=== PATIENT | male | born 1995 | race Caucasian/White ===

== ENCOUNTER → 2020-10-24 12:27 | Outpatient (BNVA) | payer OTHER, SELFPAY | PROVIDERS: PCP Family Medicine; Visit Provider Internal Medicine Gastroenterology ==

== ENCOUNTER → 2020-11-28 10:00 | Outpatient (BNVA) | payer OTHER, SELFPAY | PROVIDERS: Visit Provider Physician Assistant ==

== ENCOUNTER 2022-04-13 11:29 | Outpatient (REF) | payer OTHER, SELFPAY ==
[2022-04-13 13:24] LABS: COVID-19 Test Negative (Negative)
== END 2022-04-13 11:30 | disposition home or self-care (01) ==
LOC: HO.LAB 11:29
PROVIDERS: PCP Family Medicine; Visit Provider Internal Medicine
DX: Z20.822 Contact with and (suspected) exposure to COVID-19 (principal)
CPT/HCPCS: 87635

== ENCOUNTER 2022-07-18 18:13 | Outpatient (REF) | payer OTHER, SELFPAY ==
[2022-07-19 10:27] LABS: CT PCR NOT DETECTED (Not Detect.); NG PCR NOT DETECTED (Not Detect.)
== END 2022-07-18 18:14 | disposition home or self-care (01) ==
LOC: HO.LAB 18:13
PROVIDERS: Visit Provider Physician Assistant Medical
DX: Z11.3 Encounter for screening for infections with a predominantly sexual mode of transmission (principal)
CPT/HCPCS: 87491; 87591

== ENCOUNTER 2022-07-30 16:34 | Outpatient (REF) | payer OTHER, SELFPAY ==
[2022-07-30 17:25] LABS: COVID-19 Test Negative (Negative); IDNOW Serial# BCCEAD1C
== END 2022-07-30 16:35 | disposition home or self-care (01) ==
LOC: HO.LAB 16:34
PROVIDERS: PCP Family Medicine; Visit Provider Internal Medicine
DX: Z20.822 Contact with and (suspected) exposure to COVID-19 (principal)
CPT/HCPCS: 87635

== ENCOUNTER 2022-08-12 09:34 | Outpatient (REF) | payer OTHER, SELFPAY ==
[2022-08-12 10:26] LABS: Influenza A PCR NEGATIVE (Negative); Influenza B PCR NEGATIVE (Negative); Resp Syncy Virus RNA Qual PCR NEGATIVE (Negative); SARS COV2 PCR INHOUSE NEGATIVE (Negative)
== END 2022-08-12 09:35 | disposition home or self-care (01) ==
LOC: HO.LAB 09:34
PROVIDERS: Visit Provider Physician Assistant
DX: Z20.822 Contact with and (suspected) exposure to COVID-19 (principal); R53.83 Other fatigue; J02.9 Acute pharyngitis, unspecified
CPT/HCPCS: 0241U

== ENCOUNTER 2022-08-15 21:31 | Outpatient (REF) | payer OTHER, SELFPAY ==
[2022-08-15 22:09] LABS: IDNOW Serial# 08D9AD1C; Influenza A Negative (Negative); Influenza B2 Negative (Negative)
[2022-08-15 22:10] LABS: COVID-19 Test Negative (Negative); Strep A Nucleic Acid Negative (Negative)
== END 2022-08-15 21:32 | disposition home or self-care (01) ==
LOC: HO.LAB 21:31
PROVIDERS: Visit Provider Physician Assistant
DX: J02.9 Acute pharyngitis, unspecified (principal)
CPT/HCPCS: 87502; 87635; 87651

== ENCOUNTER 2022-08-17 16:33 | Outpatient (REF) | payer OTHER, SELFPAY ==
[2022-08-17 17:27] LABS: Influenza A PCR NEGATIVE (Negative); Influenza B PCR NEGATIVE (Negative); Resp Syncy Virus RNA Qual PCR NEGATIVE (Negative); SARS COV2 PCR INHOUSE NEGATIVE (Negative)
== END 2022-08-17 16:34 | disposition home or self-care (01) ==
LOC: HO.LAB 16:33
PROVIDERS: Visit Provider Physician Assistant Medical
DX: Z20.822 Contact with and (suspected) exposure to COVID-19 (principal); R68.89 Other general symptoms and signs
CPT/HCPCS: 0241U; C9803

== ENCOUNTER 2022-09-17 15:57 | Outpatient (REF) | payer OTHER, SELFPAY | END 2022-09-17 15:58 | disposition home or self-care (01) | LOC: HO.ED 15:57 | PROVIDERS: PCP Family Medicine; Visit Provider Physician Assistant Medical | DX: Z13.89 Encounter for screening for other disorder (principal) ==

== ENCOUNTER 2023-05-09 17:30 | Emergency (ER) | payer OTHER, SELFPAY ==
[2023-05-09 17:40] VITALS: BP 161/92; PULSE 81; RESP 16; TEMP 36.6; O2SAT 100; BMI 23.6
--- NOTE | 2023-05-09 17:42 | ED.URI ---
HPI - URI/Sore Throat General Chief Complaint: Upper Respiratory Symptoms Stated Complaint: seeking flu,covid, rsv swab Time Seen by Provider: 05/09/23 17:40 Source: patient, RN notes reviewed and old records reviewed Mode of arrival: ambulatory History of Present Illness [facility] Narrative: 28-year-old male with past medical history of hypertension, asthma presenting to the ED complaining of dry cough, sore throat, rhinorrhea, fatigue, loss of taste x2 days. Denies ear pain, difficulty/inability to swallow, SOB/CP, recent travel. + sick contacts MD elicited complaint: cough, sore throat, rhinorrhea and nasal congestion Related Data Home Medications Medication Instructions Recorded Confirmed budesonide 32 mcg/actuation nasal 2 spray intranasal DAILY 06/20/20 11/28/20 spray lisinopril 5 mg tablet 5 mg PO DAILY 06/20/20 11/28/20 albuterol sulfate 90 mcg/actuation 2 inh inhalation Q6H PRN 11/28/20 11/28/20 breath activated powder inhaler Previous Rx's Medication Instructions Recorded omeprazole 20 mg capsule,delayed 20 mg PO BID #60 caps 02/05/21 release penicillin V potassium 500 mg 500 mg PO BID 10 days #20 tabs 05/09/23 tablet Allergies Allergy/AdvReac Type Severity Reaction Status Date / Time No Known Allergies Allergy Verified 11/28/20 10:00 [No Known Allergies*] Review of Systems Review of Systems: Constitutional: No Fever, No Chills, +fatigue ENT/Mouth: No Ear Pain, + Nasal Congestion, No Sinus Pain, No Hoarseness, + sore throat, + Rhinorrhea, No Swallowing Difficulty Cardiovascular: No Chest Pain, No SOB Respiratory: + Cough, No Sputum, No Wheezing Gastrointestinal: No Nausea, No Vomiting, No Abdominal pain Musculoskeletal: No joint pain, No Myalgias, No Joint Swelling Skin: No Skin Lesions, No rash Neuro: No Weakness Yes all other systems are reviewed and are negative Constitutional: Constitutional: Reports as per [facility] Past Medical History Attestation statement: The following information was validated with the patient. Source: old records reviewed Medical History HTN (hypertension) Asthma Surgical History Hx of wisdom tooth extraction (~05/2020) Family History Family History Father HTN (hypertension) Alcohol abuse Mother HTN (hypertension) Social History Social History Household Members: Family Alcohol intake: current Alcohol intake frequency: does not drink Advance Directives: No Advance Directives Information Provided: No Physical Exam Vital Signs: Vital Signs: Last Vital Signs Temp 97.8 F 05/09/23 17:40 Pulse 81 05/09/23 17:40 Resp 16 05/09/23 17:40 BP 161/92 H 05/09/23 17:40 Pulse Ox 100 05/09/23 17:40 O2 Del Method Room Air 05/09/23 17:40 BMI result Body Mass Index 23.6 Const: General: cooperative, healthy appearing and no acute distress Orientation/consciousness: patient oriented x3 Limitations: no limitations HEENT: Head: Yes normal to inspection and Yes atraumatic Ears: hearing grossly normal bilaterally, external ears normal, TM's normal bilaterally and mastoids normal General nose exam: Normal external nose present Face and sinus: Yes normal facial exam Throat: Yes uvula midline, Yes abnormal tonsil (+ bilateral tonsillar erythema/swelling with faint exudates), No peritonsillar mass, No uvula laterally displaced and No uvular edema Eyes: General: appearance normal, both eyes and all related structures EOM: EOMs intact bilaterally Neck: Neck: Yes normal visual inspection and Yes no meningeal signs Resp: Effort & Inspection: normal respiratory effort, no respiratory distress and no stridor Auscultation: clear to auscultation bilaterally Cardio: Rate: regular rate Heart sounds: S1 normal heart sound present and S2 normal heart sound present Skin: Rashes: no rashes Wounds: no wounds Neuro: General: patient oriented x3, tone normal and no meningeal signs Cranial nerves: Yes CN's II-XII intact bilaterally Gait exam (Neuro): Normal gait present Extrem: General: Yes normal to inspection Course Course Course Narrative: -patient requesting outpatient labs that were ordered by PCP for routine visit -1808--rapid strep negative > however will treat patient with antibiotics as clinically has strep pharyngitis Medical Decision Making Medical Decision Making [facility] Narrative: 28-year-old male with past medical history of hypertension, asthma presenting to the ED complaining of dry cough, sore throat, rhinorrhea, fatigue, loss of taste x2 days. On exam vital signs stable, NAD, nontoxic appearing, bilateral tonsillar swelling/erythema with exudate noted. Talking complete sentences. Concern for strep pharyngitis versus viral syndrome including COVID-19/influenza. Lower suspicion for ACS/PE. No evidence of RN SURGICAL PCU/retropharyngeal abscess Plan: COVID/flu/RSV testing, rapid strep Please refer to course for remaining clinical decision making, interpretation of labs/imaging results, and discussions with consultants and/or family members. Differential Diagnosis Differential Diagnoses: The differential diagnosis associated with the presentation includes As above Lab Data MDM Lab Attestation statement: I reviewed the patient's lab results. 05/09/23 18:15 05/09/23 18:15 Labs: Lab Results 05/09/23 05/09/23 Range/Units 17:47 18:15 WBC 7.6 (4.8-10.8) X10*3/uL RBC 4.94 (4.60-5.80) X10*6/uL Hgb 15.5 (14.0-18.0) g/dl Hct 45.7 (42.0-52.0) % MCV 92.5 (80.0-98.0) fL MCH 31.4 (27.0-33.0) pg MCHC 33.9 (31.0-36.0) g/dl RDW 11.5 (11.0-16.0) % Plt Count 186 (160-400) X10*3/uL MPV 10.4 (9.4-12.4) fL Immature Gran % (Auto) 0.7 H (0.0-0.4) % Neut % (Auto) 64.4 (45-73) % Lymph % (Auto) 19.6 L (20-40) % Christian % (Auto) 8.6 (2-11) % Eos % (Auto) 6.3 H (0-4) % Baso % (Auto) 0.4 (0-2) % Lymph # (Auto) 1.5 (1.2-4.9) X10*3/uL Christian # (Auto) 0.7 (0.1-1.2) X10*3/uL Eos # (Auto) 0.5 H (0.0-0.4) X10*3/uL Baso # (Auto) 0.0 (0.0-0.2) X10*3/uL Abs Immat Gran (auto) 0.05 H (0.00-0.03) X10*3/uL Absolute Neuts (auto) 4.9 (2.0-8.3) x10*3/uL Absolute Nucleated RBC 0.000 (0.0-0.012) X10*3/uL Nucleated RBC % (auto) 0.0 (0.0-0.2) /100WBC Sodium 141 (135-145) mmol/L Potassium 3.7 (3.3-5.1) mmol/L Chloride 104 (96-108) mmol/L Carbon Dioxide 24 (22-29) mmol/L Anion Gap 17 (12-20) BUN 12 (9-16) mg/dL Creatinine 0.80 (0.5-1.4) mg/dL Estim Creat Clear Calc 138.6 Estimated GFR > 60 Random Glucose 96 (60-115) mg/dL Calcium 9.6 (8.4-10.2) mg/dL S. pyogenes GrpA MACKENZIE Negative (Negative) External Record Review External record reviewed: Inpatient record, Office record, Outpatient record, Prior outpatient labs, Prior outpatient radiology, Primary care record and Outside ED record Tests considered The following testing was considered but not selected: As above Prescription Management I considered prescription management with: Pain Medication and Antibiotic Chronic Conditions Patient?s care impacted by: Hypertension Discharge Plan Discharge Clinical Impression: Viral infection, Pharyngitis Patient Disposition: Home, Self-Care Instructions: Pharyngitis (ED) Additional Instructions: You tested negative on the rapid strep however clinically looks like you have strep throat, penicillin V is an antibiotic please take as prescribed Take Tylenol /Motrin for body aches/fever Make sure staying hydrated Plenty of fluids Follow-up with your doctor Prescriptions: New penicillin V potassium 500 mg tablet 500 mg PO BID 10 Days Qty: 20 0RF No Action lisinopril 5 mg tablet 5 mg PO DAILY budesonide 32 mcg/actuation spray,non-aerosol 2 spray intranasal DAILY Rx Instructions: administer into each nostril albuterol sulfate 90 mcg/actuation aerosol powdr breath activated 2 inh inhalation Q6H PRN omeprazole 20 mg capsule,delayed release(DR/EC) 20 mg PO BID Qty: 60 3RF Referrals: Francisca Mckeon MD [Primary Care Provider] - 1 week
[2023-05-09 18:03] LABS: IDNOW Serial# 08D9AD1C; Strep A Nucleic Acid Negative (Negative)
[2023-05-09 18:20] LABS: MANUAL DIFF FLAG NO
[2023-05-09 18:28] LABS: Basophils Percent Auto 0.4 % (0-2); Eosinophils Absolute Auto 0.5 X10*3/uL (0.0-0.4); Eosinophils Percent Auto 6.3 % (0-4); Hematocrit 45.7 % (42.0-52.0); Hemoglobin 15.5 g/dl (14.0-18.0); Imm Gran Abs Auto 0.05 X10*3/uL (0.00-0.03); Imm Gran Pct Auto 0.7 % (0.0-0.4); Lymphocytes Absolute Auto 1.5 X10*3/uL (1.2-4.9); Lymphocytes Percent Auto 19.6 % (20-40); Mean Corpuscular HGB Conc 33.9 g/dl (31.0-36.0); Mean Corpuscular Hemoglobin 31.4 pg (27.0-33.0); Mean Corpuscular Volume 92.5 fL (80.0-98.0); Mean Platelet Volume 10.4 fL (9.4-12.4); Monocytes Absolute Auto 0.7 X10*3/uL (0.1-1.2); Monocytes Percent Auto 8.6 % (2-11); Neutrophils Absolute Auto 4.9 x10*3/uL (2.0-8.3); Neutrophils Percent Auto 64.4 % (45-73); Platelet Count 186 X10*3/uL (160-400); Red Blood Count 4.94 X10*6/uL (4.60-5.80); Red Cell Distribution Width 11.5 % (11.0-16.0); White Blood Count 7.6 X10*3/uL (4.8-10.8)
[2023-05-09 18:49] LABS: Anion Gap 17 (12-20); Blood Urea Nitrogen 12 mg/dL (9-16); Calcium 9.6 mg/dL (8.4-10.2); Carbon Dioxide 24 mmol/L (22-29); Chloride 104 mmol/L (96-108); Creatinine Clr Calc Pharmacy 138.6; Estimated Glomerular Filt Rate > 60; Glucose Random 96 mg/dL (60-115); Potassium 3.7 mmol/L (3.3-5.1); Sodium 141 mmol/L (135-145)
[2023-05-09 19:05] LABS: TSH reflex Free T4 0.85 uIU/mL (0.32-4.0)
[2023-05-09 19:06] LABS: Influenza A PCR NEGATIVE (Negative); Influenza B PCR NEGATIVE (Negative); Resp Syncy Virus RNA Qual PCR NEGATIVE (Negative); SARS COV2 PCR INHOUSE NEGATIVE (Negative)
== END 2023-05-09 19:18 | disposition home or self-care (01) ==
PROVIDERS: Physician Assistant; Emergency Provider Emergency Medicine; PCP Family Medicine
DX: B34.9 Viral infection, unspecified (principal); J02.9 Acute pharyngitis, unspecified; Z20.822 Contact with and (suspected) exposure to COVID-19; Z20.828 Contact with and (suspected) exposure to other viral communicable diseases; I10 Essential (primary) hypertension; J45.909 Unspecified asthma, uncomplicated; R13.10 Dysphagia, unspecified; Z79.899 Other long term (current) drug therapy
CPT/HCPCS: 0241U; 36415; 80048; 84443; 85025; 87651; 99282; 99283

== ENCOUNTER 2025-04-18 15:46 | Outpatient (AMB) | payer OTHER, SELFPAY ==
--- NOTE | 2025-04-18 15:49 | MHC.PC.OV ---
Vital Signs 04/18/25 15:57 Height 5 ft 9 in Weight 80.739 kg BMI 26.3 BP 120/74 Blood Pressure Location Rt brachial Position Sitting Respiration 16 Pulse 78 Pulse Source Pulse Oximeter Temp 97.6 F Temp Source Temporal Artery Scan Pulse Oximetry (%) 98 Oxygen Delivery Method Room Air Intake Visit Reasons: New patient Film Touch Up Inspector Required: No Accompanied by: Self / Same As Patient Allergies No Known Allergies (No Known Allergies*) Allergy (Verified 04/18/25 15:49) Medication List - Last Reconciled 04/18/25 by WILL Rodriguez albuterol sulfate 90 mcg/actuation (Ventolin HFA) 2 puffs inhalation Q4-6H PRN beclomethasone dipropionate 40 mcg/actuation (Qvar RediHaler) 2 inhalations inhalation BID clotrimazole 1% 1 appl topical BID lisinopril 5 mg PO DAILY Tobacco use date assessed: 04/18/25 HPI HPI Comments History of Present Illness Details 30-year-old male with history of hypertension, asthma, dysphagia presents to the office today for management of chronic conditions and to establish care. Previously with [facility]. HTN- bp 120/74. On lisinopril 5mg. Has had f fatigue, no lightheadedness Asthma- mild persistent. no recent exacerbation. On qvar, rare albuterol use Dyphagia- normal barium swallow several years ago. No ongoing dysphagia. No longer following with Gastroenterology. Has discontinued omeprazole Sti concerns- remote history of unprotected sex. Reports he recently had STI testing at prior PCP but did not include HIV. He is requesting HIV testing. ROS: See HPI EXAM: Constitutional - Awake and Alert, No apparent distress Eyes - PERRL Cardiovascular - S1S2, RRR, No edema Respiratory - Normal lung expansion, Normal respiratory effort, No respiratory distress, CTA bilaterally Extremities - no calf tenderness bilaterally, no swelling Skin - Warm/Dry Neurological - Alert & oriented x3 Psychological - Appropriate affect PFSH Medical History HTN (hypertension) Asthma Surgical History Hx of wisdom tooth extraction (~05/2020) Family History Father HTN (hypertension) Alcohol abuse Mother HTN (hypertension) Social History Household Members: Family Both parents involved: Yes Housing: House Alcohol intake: current Alcohol intake frequency: does not drink Patient Tobacco Use Status: Never used Tobacco e-Cigarette/Vaping Use: Never Used service: No Current occupational status: employed Questionnaire PHQ-9 Over the last 2 weeks, how often have you been bothered by any of the following problems? 1. Little interest or pleasure in doing things: not at all 2. Feeling down, depressed, or hopeless: not at all 3. Trouble falling or staying asleep, or sleeping too much: several days 4. Feeling tired or having little energy: several days 5. Poor appetite or overeating: not at all 6. Feeling bad about yourself - or that you are a failure or have let yourself or your family down: not at all 7. Trouble concentrating on things, such as reading the newspaper or watching television: not at all 8. Moving or speaking so slowly that other people could have noticed. Or the opposite - being so fidgety or restless that you have been moving around a lot more than usual: not at all 9. Thoughts that you would be better off or of hurting yourself in some way: not at all Total score: 2 Source: Developed by Drs. Janak Pompa, Sloane Joseph, Ethan Carr and colleagues, with an educational jaison from [employer]. Thrive Questionnaire Date Thrive assessed: 04/18/25 I am a: Patient What is your living situation today?: I have a steady place to live Within the past 12 months, did the food you bought not last and you didn't have the money to get more?: Never true Within the past 12 months, did you worry whether your food would run out before you got money to buy more?: Never true Do you have trouble paying for medicines?: No Do you have trouble getting transportation to medical appointments?: No Do you have trouble paying your heating and electricity bill?: No Do you have trouble taking care of your child, family member or friend?: No Do you have trouble with day-to-day activities such as bathing, preparing meals, shopping, managing finances, etc.?: No Are you currently unemployed and looking for a job?: No Are you interested in more education?: No Please select the resources that you would like help with: None THRIVE Score: 0 AUDIT C Alcohol Use Questionnaire (AUDIT-C) 1. How often do you have a drink containing alcohol?: Monthly or less 2. How many drinks containing alcohol do you have on a typical day when you are drinking?: 1 or 2 Total Score: 1 JESSICA-7 AMB Questionnaire JESSICA-7 Date JESSICA - 7 assessed: 04/18/25 Feeling nervous, anxious, or on edge: 1 = Several days Not being able to stop or control worryin = Several days Worrying too much about different things: 0 = Not at all Trouble relaxin = Several days Being so restless that it is hard to sit still: 0 = Not at all Becoming easily annoyed or irritable: 0 = Not at all Feeling afraid as if something awful might happen: 1 = Several days Total JESSICA-7 score (0-4 normal; 5-9 mild; 10-14 moderate; 15-21 severe): 4 Source: Developed by Drs. Janak Pompa, Sloane Joseph, Ethan Carr and colleagues, with an educational jaison from [employer]. Physical exam (Primary Care) Vital Signs: Last Vital Signs Temp 97.6 F 04/18/25 15:57 Pulse 78 04/18/25 15:57 Resp 16 04/18/25 15:57 BP 120/74 04/18/25 15:57 Pulse Ox 98 04/18/25 15:57 Oxygen Delivery Method Room Air 04/18/25 15:57 BMI result Body Mass Index 26.3 Tobacco/Smoking Status: Tobacco use Status Tobacco use date assessed 04/18/25 04/18/25 15:52 Patient Tobacco Use Status Never used Tobacco 04/18/25 15:59 e-Cigarette/Vaping Use Never Used 04/18/25 15:59 PHQ-9: PHQ-9 Score PHQ-9: Total score 2 04/18/25 16:51 Thrive Assessment: Date of Thrive Assessment Date Thrive assessed 04/18/25 04/18/25 16:51 Coding Level of Care Code New Pt Level 4 (63277) Complex EM visit Add On G2211 Diagnoses HTN (hypertension) I10 Dysphagia R13.10 Asthma J45.909 Unprotected sex Z72.51 Assessment & Plan Assessment & Plan (1) HTN (hypertension): Code(s): I10 - Essential (primary) hypertension Category: Medical Plan: Controlled. Would recommend continuing lisinopril 5 mg daily at this (2) Dysphagia: Comment: a very pleasant 25-year-old male referred with dysphagia to solids-however inconsistent. He does not want to pursue any further workup. He will continue following medications for asthma-as well as good oral hygiene, ? esophagitis- He will call us with questions or concerns-as well will call with progress Eat slowly -chew well Encouraged to monitor symptoms- omeprazole 20 mg now is helpful. reportedly , reportedly normal barium swallow at [facility]- will attempt, again to get that record. may be functional Code(s): R13.10 - Dysphagia, unspecified Category: Medical Plan: Resolved. Reviewed last barium swallow. He may remain off of omeprazole. Should symptoms recur, advised to contact the office and resume omeprazole (3) Asthma: Code(s): J45.909 - Unspecified asthma, uncomplicated Category: Medical Plan: Stable. Continue QVAR and use albuterol only as needed for shortness of breath and wheezing (4) Unprotected sex: Code(s): Z72.51 - High risk heterosexual behavior Category: Medical Plan: HIV testing ordered. He declines prep at this time, but may consider in the future. At which time, referral can be placed to Infectious Disease for recommendations Plan Follow-up in the office in 6 months for annual physical exam. Orders: Orders HIV Ab/Ag Today Z72.51 - High risk heterosexual behavior Medications: New albuterol sulfate 90 mcg/actuation (Ventolin HFA) 2 puffs inhalation Q4-6H PRN 8.5 grams 1RF shortness of breath or wheezing
[2025-04-18 15:57] VITALS: BP 120/74; PULSE 78; RESP 16; TEMP 36.4; O2SAT 98; BMI 26.3
--- OUTSIDE RECORDS SUMMARY | 2025-04-18 16:39 | XMS_ITS | Encounter Summary ---
Author Organization [facility] Address [address] [place] [address] Phone Care Team Providers Care Gore Maker Name Role Phone Francisca Mckeon MD, MPH Primary Care Provid er Francisca Mckeon MD, MPH Unavailable [phone] Encounter Details Date Type Department Care Team (Late st Contact Info) Description 07/29/2022 Transcribe Orders [facility] Specimen Processing [address] [place] [address] Francisca Mckeon MD, MPH [address] [facility] [address] [place] [address] [email or web address] Social History Tobacco Use Types Packs/Day Years Used Date Smoking Tobacco: Never Smokeless Tobacco: Never Alcohol Use Standard Drinks/Week Comments Not Currently 0 (1 standard drink = 0.6 oz pur e alcohol) Child or Family Care Answer Date Record ed Do you have problems with on e of the following making it difficult for you to work, study, or receive health care? No 07/24/2021 Education Answer Date Recorded Are you interested in help w ith more adult education (for example, completing high school, GED, job training, learning the [place] language, technical skills, or developing parenting skills)? No 07/24/2021 Are you concerned about learning? Not on file 07/24/2021 Not on file 07/24/2021 Not on file 07/24/2021 Food Answer Date Recorded Within the past 6 months we worried whether our food would run out before we got money to buy more. Never True 07/24/2021 Within the past 6 months the food we bought just didn't last and we didn't have enough money to get more. Never True Paying for Meds Answer Date Recorded Do you have trouble paying for medicines? No 07/24/2021 Paying Utility Bills Answer Date Record ed Do you have trouble paying your heating or elect ricity bill? No 07/24/2021 Transportation Answer Date Recorded Has the lack of transportati on kept you from medical appointments or from getting medications? No 07/24/2021 Sex and Gender Information Value Date Recorded Sex Assigned at Male 07/22/2019 2:14 PM EST Legal Sex Male 3:36 PM EDT Gender Identity Male 07/22/2019 2:14 PM EST Sexual Orientation Lesbian or Graves 07/22/2019 2: 14 PM EST documented as of this encounter Plan of Treatment Not on file documented as of this encounter Visit Diagnoses Not on filedocumented in this encounter Additional Health Concerns Assessment Noted Time PHQ-2 Depression Total Score: 0 07/24/20 21 12:16 PM EST documented as of this encounter Care Teams Gore Maker Relationship Specialty Start Date End Date Francisca Mckeon MD, MPH [address] [place] [id number] [email or web address] PCP - General Family Medicine 06/09/19 Francisca Mckeon MD, MPH [address] [address] Insurance Assigned Provider 10/22/24 documented as of this encounter Additional Source Comments The information contained in this document represents components of the legal health record. It is not the complete legal health record.[facility]
--- OUTSIDE RECORDS SUMMARY | 2025-04-18 16:39 | XMS_ITS | Encounter Summary ---
Author Organization [facility] Address [address] [place] [phone] Phone Care Team Providers Care Automotive Product Specialist Name Role Phone Francisca Mckeon MD, MPH Primary Care Provid er Francisca Mckeon MD, MPH Unavailable [phone]- [phone] Encounter Details Date Type Department Care Team (Late st Contact Info) Description 05/02/2021 Procedure Pass [facility] Endoscopy Admitting Dept Virtual Department [address] [place] [address] Social History Tobacco Use Types Packs/Day Years Used Date Smoking Tobacco: Never Smokeless Tobacco: Never Alcohol Use Standard Drinks/Week Comments Yes 0 (1 standard drink = 0.6 oz pur e alcohol) Sex and Gender Information Value Date Recorded [...] Noted Time PHQ-2 Depression Total Score: 0 07/22/20 20 6:15 PM EST documented as of this encounter Care Teams Automotive Product Specialist Relationship Specialty Start Date End Date Francisca Mckeon MD, MPH [address] [facility] [address] [place] [address] [email or web address] PCP - General Family Medicine 06/09/19 Francisca Mckeon MD, MPH [address] [place] [address] [email or web address] Insurance Assigned Provider 10/22/24 documented as of this encounter Additional Source Comments The information contained in this document represents components of the legal health record. It is not the complete legal health record.[facility]
--- OUTSIDE RECORDS SUMMARY | 2025-04-18 16:39 | XMS_ITS | Encounter Summary ---
Author Organization [facility] Address [address] [place] [address] Phone Care Team Providers Care Tankage Supervisor Name Role Phone Francisca Mckeon MD, MPH Primary Care Provid er Francisca Mckeon MD, MPH Unavailable [phone] Reason for Visit * Reason Onset Date Comments Constipation 10/30/2022 Encounter Details Date Type Department Care Team (Late st Contact Info) Description 10/30/2022 Nurse Triage [facility] [address] [facility] [address] [facility] [address] [place] [address] Francisca Mckeon MD, MPH [address] [facility] [address] [place] [address] [email or web address] Constipation Social History Tobacco Use Types Packs/Day Years [...] high school, GED, job training, learning the Tanzanian language, technical skills, or developing parenting skills)? [...] PM EST documented as of this encounter Progress Notes * Vickie Kingston RN - 10/30/2022 11:41 AM EDT Spoke to pt regarding recent constipation following eating mozzarella sticks. Pt reports they started laxative which produced BM yesterday and today. Stool is now watery. Pt reports intermittent moderate abdominal pain. Offered to schedule appt for pt. Pt would like to monitor symptoms at home. Discussed increasing fluid intake, fiber and holding off on laxative. Advised pt to go to ED if abdominal becomes constant, severe pain. Advised to call back if intermittent pain worsens or does not go away. Pt verbalized understanding. Reason for Disposition ??? Mild constipation Answer Assessment - Initial Assessment Questions 1. STOOL PATTERN OR FREQUENCY: How often do you have a bowel movement (BM)? (Normal range: 3 times a day to every 3 days) When was your last BM? Usually once a day, and last BM was today, reports taking a laxative at 2am yesterday. 2. STRAINING: Do you have to strain to have a BM? A little straining 3. RECTAL PAIN: Does your rectum hurt when the stool comes out? If Yes, ask: Do you have hemorrhoids? How bad is the pain? (Scale 1-10; or mild, moderate, severe) No, but reports abdominal pain intermittently unrelated to when BM's happen, 5-01/24 4. STOOL COMPOSITION: Are the stools hard? The last 2 days were solid, but now they are watery. 5. BLOOD ON STOOLS: Has there been any blood on the toilet tissue or on the surface of the BM? IfYes, ask: When was the last time? no 6. CHRONIC CONSTIPATION: Is this a new problem for you? If no, ask: How long have you had this problem? (days, weeks, months) Every once in a while 7. CHANGES IN DIET OR HYDRATION: Have there been any recent changes in your diet? How much fluids are you drinking on a daily basis? How much have you had to drink today? Ate a lot of mozzarella sticks prior to this starting 8. MEDICATIONS: Have you been taking any new medications? Are you taking any narcotic pain medications? (e.g., Vicodin, Percocet, morphine, Dilaudid) no 9. LAXATIVES: Have you been using any stool softeners, laxatives, or enemas? If yes, ask What, how often, and when was the last time? Docusate sodium 100mg 10. ACTIVITY: How much walking do you do every day? Has your activity level decreased in the past week? Does not walk often, 11. CAUSE: What do you think is causing the constipation? cheese 12. OTHER SYMPTOMS: Do you have any other symptoms? (e.g., abdominal pain, bloating, fever, vomiting) Abdominal pain intermittent, fatigue 13. MEDICAL HISTORY: Do you have a history of hemorrhoids, rectal fissures, or rectal surgery or rectal abscess? no 14. : Is there any chance you are ? When was your last menstrual period? Na Protocols used: [id number] documented in this encounter Plan of Treatment Not on file documented as of this encounter Visit Diagnoses Not on filedocumented in this encounter Additional Health Concerns Assessment Noted Time PHQ-2 Depression Total Score: 0 07/24/20 21 12:16 PM EST documented as of this encounter Care Teams Tankage Supervisor Relationship Specialty Start Date End Date Francisca Mckeon MD, MPH [address] [address] [email or web address] PCP - General Family Medicine 06/09/19 Francisca Mckeon MD, MPH [address] [address] [email or web address] Insurance Assigned Provider 10/22/24 documented as of this encounter Additional Source Comments The information contained in this document represents components of the legal health record. It is not the complete legal health record.[facility]
--- OUTSIDE RECORDS SUMMARY | 2025-04-18 16:39 | XMS_ITS | Encounter Summary ---
Author Organization [facility] Address [address] [place] [address] Phone Care Team Providers Care Concrete Carpenter Name Role Phone Arminda Reilly MD Primary Care Provider [phone] Encounter Details Date Type Department Care Team (Late st Contact Info) Description 06/18/2017 Conversion Encounter [facility] [address] [place] [address] Social History Tobacco Use Types Packs/Day Years Used Date Smoking Tobacco: Never Comments:Never smoker Sex and Gender Information Value Date Recorded Sex Assigned at Not on file Legal Sex Male 4:57 PM EDT Gender Identity Not on file Sexual Orientation Not on file documented as of this encounter Plan of Treatment Not on file documented as of this encounter Visit Diagnoses Not on filedocumented in this encounter Care Teams Concrete Carpenter Relationship Specialty Start Date End Date Arminda Reilly MD [address] [place] [address] PCP - General 03/27/17 12/12/17 documented as of this encounter
--- OUTSIDE RECORDS SUMMARY | 2025-04-18 16:39 | XMS_ITS | Encounter Summary ---
Author Organization [facility] Address [address] [place] [address] [place] [address] Phone Care Team Providers Care Foreign Student Adviser Teacher Name Role Phone Francisca Mckeon MD, MPH Primary Care Provid er Francisca Mckeon MD, MPH Unavailable [phone] Encounter Details Date Type Department Care Team (Late st Contact Info) Description 09/19/2022 Procedure Pass Non-Invasive Cardiology [address] [place] [address] Social History Tobacco Use Types Packs/Day Years [...] high school, GED, job training, learning the Wallisian language, technical skills, or developing parenting skills)? [...] documented as of this encounter Care Teams Foreign Student Adviser Teacher Relationship Specialty Start Date End Date Francisca Mckeon MD, MPH [address] [address] [email or web address] PCP - General Family Medicine 06/09/19 Francisca Mckeon MD, MPH [address] [address] Insurance Assigned Provider 10/22/24 documented as of this encounter Additional Source Comments The information contained in this document represents components of the legal health record. It is not the complete legal health record.[facility]
--- OUTSIDE RECORDS SUMMARY | 2025-04-18 16:39 | XMS_ITS | Clinical Summary ---
Author Organization [facility] Address [address] [place] [address] Phone Care Team Providers Care Film Critic Name Role Phone Francisca Mckeon MD, MPH Primary Care Provid er Francisca Mckeon MD, MPH Unavailable [phone] Allergies No known active allergies Medications senna (SENOKOT) 8.6 mg tablet Take 1 tablet by mouth daily as needed for constipation. PRN Active cyclobenzaprine (FLEXERIL) 10 MG tablet Take 1 tablet (10 mg total) by mouth 3 (three) times a day as needed. 10 tablet 2 Active Additional Information Patient not taking.Reported on 01/18/2025 clotrimazole (LOTRIMIN) 1 % cream APPLY TOPICALLY TWICE DAILY 45 g 1 3 Active albuterol 90 mcg/actuation inhaler Inhale 2 puffs into the lungs every 6 (six) hours as needed for wheezing. 13.4 g 3 Active albendazole (ALBENZA) 200 mg tabletIndication s:Pinworm infection 2 tablets by mouth once and then repeat two weeks later. 4 tablet 4 Active Additional Information Patient not taking.Reported on 01/18/2025 beclomethasone (QVAR REDIHALER) 40 mcg/actuation inhaler Inhale 2 puffs into the lungs 2 (two) times a day. 10.6 g 5 4 Active lisinopril (PRINIVIL,ZESTRI L) 5 MG tabletIndication s:Essential hypertension TAKE 1 TABLET BY MOUTH EVERY DAY 90 tablet 3 5 Active ondansetron (ZOFRAN) 8 MG tablet Take 1 tablet (8 mg total) by mouth every 8 (eight) hours as needed for nausea. 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 -Continue Advil as needed with food -Add Flexeril 10 mg p.o. 3 times daily as needed dispense 10, [facility] verified. Patient advised not to drive or use heavy machinery while on this medication -Physical therapy referral -continue heat as needed Generalized anxiety disorder 09/21/2019 Assessment & Plan (12/18/2021 11:51 AM EDT): Reassurance provided. We discussed that physiology of anxiety and panic attacks. He and I reviewed a number of techniques to help with his anxiety and he is interested in applying those. We also discussed medications: Propranolol, buspirone, sertraline. At this point he is not interested in medicine but will revisit if necessary. Assessment & Plan (02/05/2021 9:34 PM EDT): Currently well controlled Assessment & Plan (10/24/2020 1:39 PM EST): Doing well managing his symptoms currently. Assessment & Plan (07/23/2020 3:09 PM EST): Currently doing well Assessment & Plan (05/18/2020 11:26 AM EDT): Consider re-evaluating therapy with a different therapist in the future. Assessment & Plan (01/02/2020 2:42 PM EDT): Encouraged to keep in touch with therapist for a while. Assessment & Plan (12/05/2019 2:40 PM EDT): Feels like this is improving, continue regular exercise. Will see counselor PRN. Assessment & Plan (10/17/2019 12:49 PM EST): Encouraged to establish with therapist. Continue regular exercise. Suspect anxiety is largely contributing to elevations in blood pressure although pt does have a strong family history as well. May want to consider SSRI treatment in the future. Assessment & Plan (09/21/2019 4:33 PM EST): Encouraged to find a therapist. He says he will wait til after wisdom teeth come out, likely end of this month. We also discussed medications as a possibility but would recommend starting with counseling first. Primary insomnia 08/19/2019 Assessment & Plan (09/21/2019 4:33 PM EST): Improving. Assessment & Plan (08/19/2019 1:44 PM EST): Sleep hygiene reviewed- encouraged bedtime routine, only being in bed for sleep, avoiding screens for an hour before bed, etc. Essential hypertension 07/22/2019 Assessment & Plan (11/16/2024 9:40 AM EDT): Borderline control, he will check some at home when not in a panic. Cont lisinopril Assessment & Plan (11/16/2023 12:38 PM EDT): Controlled, cont lisinopril. Had labs in April 2023, due in the fall Assessment & Plan (11/12/2022 12:54 PM EDT): Well controlled, cont current meds. Reminded to get blood work done Assessment & Plan (07/28/2022 1:38 PM EST): Well controled, cont lisinopril. Assessment & Plan (07/29/2021 12:13 PM EST): Well controlled, cont current meds Assessment & Plan (02/05/2021 9:34 PM EDT): Borderline control. Cont regular exercise and lisinopril 5mg Assessment & Plan (10/24/2020 1:36 PM EST): Cont lisinopril 5mg daily Assessment & Plan (07/23/2020 3:08 PM EST): Well controlled today. Assessment & Plan (05/18/2020 11:29 AM EDT): Well controlled today, cont lisinopril Assessment & Plan (01/02/2020 2:44 PM EDT): Has a strong family history of HTN. Bps on home machine improved with lisinopril 5mg. Would not check more often than 1-2x/week. Reviewed goal BP range (100-120s/60-80s). Ideally we can eventually get him off of medications, although with his family history he will likely end up back on medications again later in life. Assessment & Plan (12/05/2019 2:40 PM EDT): Well controlled now. Home BP cuff not accurate. Cont metoprolol. Assessment & Plan (10/17/2019 12:48 PM EST): Suspect anxiety is contributing but with documentation of a week's worth of home blood pressure readings above treatable range, will initiate treatment. Choosing beta-gely due to possible calming effects. Reviewed sodium restriction, exercise, reduced caffeine. Reviewed potential side effects including dizziness with standing. Check blood pressure about once a day and record for follow up in 2 weeks. Bring home BP cuff to next appt for accuracy check. Assessment & Plan (09/21/2019 4:34 PM EST): Continue regular exercise. Discussed cutting back on sodium- looking at labels, avoiding packaged foods. Still not in a treatment range. I suspect white coat syndrome may also be playing a role here but he has not been able to measure Bps outside of the office. Assessment & Plan (08/19/2019 1:39 PM EST): BP improved but still above goal for pt. Not in medication treatment range. Encouraged to increase exercise Assessment & Plan (07/22/2019 2:38 PM EST): Will reassess in 4 weeks. Patient will check blood pressure at home a couple times a week and write down. Seborrheic dermatitis of scalp 07/22/2019 Overview (07/22/2019): Uses ketoconazole shampoo as needed. Previously had tried Selsun Blue, head and shoulders Environmental allergies 07/22/2019 Mild persistent asthma without complication 01/2019 Assessment & Plan (11/16/2023 1:02 PM EDT): Controlled, PRN albuterol Assessment & Plan (10/24/2020 1:36 PM EST): Currently well controlled without controller inhaler. Assessment & Plan (07/23/2020 3:09 PM EST): Currently well controlled. Assessment & Plan (09/21/2019 4:33 PM EST): Improving with regular exercise. Assessment & Plan (08/19/2019 1:42 PM EST): Not taking control medication yet. Albuterol use still above goal despite being improved. Will try sending a diff rx, encouraged pt to call if rx is too expensive. Assessment & Plan (07/22/2019 2:39 PM EST): Currently has daily albuterol use, we reviewed goal of 1-2 times of albuterol use per week. Start controller inhaler at this time. No evidence of acute exacerbation on exam or history today. Consider Singulair as adjunctive in the future given considerable environmental allergies component. Resolved Problems Problem Noted Date Diagnosed Date Resolved Date Chronic pain of right knee 02/05/2021 1 08/17/2021 Assessment & Plan (02/05/2021 9:35 PM EDT): Benign exam. Will obtain XR. Given handout with strengthening and stretching exercises. Left varicocele 10/24/2020 06/17/2022 Overview (10/24/2020): Small on 09/2020 US Assessment & Plan (10/24/2020 1:40 PM EST): Reviewed this new diagnosis and it's implications today. Small in size, would recommend conservative mgmt at this time. Oropharyngeal dysphagia 09/21/201908/2021 Assessment & Plan (02/05/2021 9:35 PM EDT): Stop omeprazole for now and see how this impacts symptoms. Follow up w new GI as scheduled Assessment & Plan (07/23/2020 3:09 PM EST): Improving with omeprazole, following with GI currently. Assessment & Plan (05/18/2020 11:26 AM EDT): Unable to get to GI. Still having dysphagia and globus sensation. [facility] referral made. Assessment & Plan (01/02/2020 2:44 PM EDT): Has GI appt upcoming, encouraged to keep this. Assessment & Plan (12/05/2019 2:39 PM EDT): Has not responded to PPI. Referral placed to GI. Assessment & Plan (10/17/2019 12:48 PM EST): Improving some with PPI treatment, continue PPI for now and follow up at next visit. Assessment & Plan (09/21/2019 4:35 PM EST): Will start trial of PPI and get swallow study to start. Discussed possibility of esophagitis vs esophageal spasm or constriction (which would require endoscopy). Pt prefers to hold off on seeing GI just yet. History of constipation 07/22/201908/2021 Assessment & Plan (07/22/2019 2:37 PM EST): Continue PRN senna use. Agree with patient's insight to increase fiber and water intake Nasal polyp 07/22/2019 06/17/2022 Overview (07/22/2019): On right side, noted on prior exam at [facility] Encounters Date Type Department Care Team Description 01/18/2025 10:00 AM EDT [facility] [address] [place] [address] Cathryn Lyons MD Acute viral syndrome (Primary Dx) 01/16/2025 Nurse Triage [facility] [address] [place] [address] Ashley Julien RN from Last 3 Months Immunizations Immunization Administration Dates Next Due COVID-19 (Pre-06/08) Pfizer Vaccine, mRNA, PF 02/09/2021,01/19/2021,01/19/2021 DTP 10/24/1997, 7,1996,04/21 Dtap, 5 Pertussis Antigens 03/11/2001 HPV,quadrivalent 08/01/2013,03/18/2013, 3 Hepatitis A, Adult 02/14/2015 Hepatitis A, ped/adol, 2 dose 01/24/2014 Hepatitis B 1996,1996,1996 Hepatitis B Adult 11/01/2018, 9,05/03/2018,05/03,03/31/2018,03/31/2018,1996 Hib,PRP-T 05/21/1997, 7,1996,04/21 INFLUENZA, SPLIT VIRUS, TRIVALENT PF 06/02/2024 INFLUENZA, SPLIT VIRUS, TRIV ALENT W/ PRESERVATIVE IM 05/22/2009,10/17/2008,08/13/2006 IPV 03/11/2001 Influenza Quadrivalent MDCK Preservative Free IM 08/21/2023 Influenza Quadrivalent Prese rvative Free IM 07/28/2022,05/18/2020,05/03/2018,05/21,08/08/2013 Influenza Quadrivalent w/ Pr eservative IM 08/03/2014 Influenza Recombinant Rody valent Preservative Free IM 07/22/2019 Influenza Split (Incl. Purif ied Surface Antigen) 08/26/2012,05/06/2011 Influenza, Unspecified Formulation 07/28/2022 MMR 03/20/2000, 0,05/18/1997,05/18 Meningococcal MCV4P 03/05/2015,04/06/2008 PPD Test 04/12/2018,03/29/2018 Polio - OPV 1996,1996,1996 Tdap 03/29/2018,03/29/2018,04/06/2008 Varicella 04/06/2008, 8,1997,02/13 Family History Medical History Relation Comments No Known Problems Brother Alcohol use disorder Father Hypertension Father No Known Problems Mother Relation Status Comments Brother Alive Father Alive Maternal Grandfather Maternal Grandmother Mother Alive Paternal Grandfather Alive Paternal Grandmother Social History Tobacco Use Types Packs/Day Years Used Date Smoking Tobacco: Never Passive Smoke Exposure: Current Smokeless Tobacco: Never Tobacco Cessation:Counseling Given: Not Answered Alcohol Use Standard Drinks/Week Comments Not Currently 0 (1 standard drink = 0.6 oz pur e alcohol) Child or Family Care Answer Date Record ed Do you have problems with on e of the following making it difficult for you to work, study, or receive health care? No 11/15/2023 Education Answer Date Recorded Are you interested in help w ith more adult education (for example, completing high school, GED, job training, learning the Croatian language, technical skills, or developing parenting skills)? No 11/15/2023 Are you concerned about learning? Not on file 11/15/2023 No 11/15/2023 Yes 11/15/2023 Food Answer Date Recorded Within the past 6 months we worried whether our food would run out before we got money to buy more. Never True 11/15/2023 Within the past 6 months the food we bought just didn't last and we didn't have enough money to get more. Never True Residential Stability Answer Date Recor ded What is your housing situation today? I have christi sing 11/15/2023 How many times have you move d in the past 12 months? Zero (I did not move) 11/15/2023 Paying for Meds Answer Date Recorded Do you have trouble paying for medicines? No 11/15/2023 Paying Utility Bills Answer Date Record ed Do you have trouble paying your heating or elect ricity bill? No 11/15/2023 Transportation Answer Date Recorded Has the lack of transportati on kept you from medical appointments or from getting medications? No 11/15/2023 Unemployment Answer Date Recorded Are you currently unemployed or working on a part-time or temporary basis, and looking for work? No 11/15/2023 Digital Access Answer Date Recorded No 11/15/2023 Yes 11/15/2023 Do you have reliable internet access at home? Ye s 11/15/2023 Do you have a device (e.g., phone, tablet, computer) with a working camera? Yes 11/15/2023 Intimate Partner Violence Answer Date R ecorded Denied Basic Needs Not on file 11/12/2024 In the past 12 months have y ou been in a relationship with a person who hurts, threatens, or tries to control you? No 11/12/2024 Worried food would run out Not on file 11/12 In the past 12 months have y ou been in a relationship with a person who hurts, threatens, or tries to control you? No 11/12/2024 Sex and Gender Information Value Date Recorded Sex Assigned at Male 07/22/2019 2:14 PM EST Legal Sex Male 3:36 PM EDT Gender Identity Male 07/22/2019 2:14 PM EST Sexual Orientation Lesbian or Graves 07/22/2019 2: 14 PM EST Last Filed Vital Signs Vital Sign Reading Time Taken Comments Blood Pressure 124/70 01/18/2025 9:54 AM EDT Pulse 86 01/18/2025 9:54 AM EDT Temperature 36.7 C (98.1 F) 01/18/2025 9:54 AM EDT Respiratory Rate 20 01/15/2023 10:5 1 AM EDT Oxygen Saturation 99% 01/18/2025 9:54 AM EDT Inhaled Oxygen Concentration - - Weight 79.7 kg (175 lb 12.8 oz) 01/18/2025 9:54 AM EDT Height 177 cm (5' 9.69 ) 11/16/2024 8:43 AM EDT Body Mass Index 25.45 11/16/2024 8:43 AM EDT Plan of Treatment Health Maintenance Due Date Last Done Comments POTASSIUM LEVEL 1996 HIV ONE-TIME SCREENING (18-65 YEARS) 02/12/2014 PNEUMOCOCCAL VACCINES (0-49 years) (1 of 2 - PCV) 02/12/2015 INFLUENZA VACCINE (#1) 2025 , 08/21/2023, 07/28/2022, Additional history exists COVID-19 VACCINE (2024- season) 2025 02/09/2021, 01/19/2021, 01/19/2021 BLOOD PRESSURE 07/20/2025 01/18/2025 DEPRESSION SCREENING 11/12/2025 11/12/2024 CREATININE LEVEL 11/16/2025 11/16/2024, 10/22/2019 Adult Td,Tdap Booster 03/29/2028 03/29/2018 , 03/29/2018, 04/06/2008 HIB VACCINES Completed 05/21/1997, 10/1996, 1996, Additional history exists HEPATITIS A VACCINES Completed 02/14/2015, 01/25/20 14 MENINGOCOCCAL VACCINES (ACWY) Aged Out 03/05/2015, 04/06/2008 No longer eligibl e based on patient's age to complete this topic HEPATITIS C SCREENING Completed 11/16/2024 SMOKING STATUS SCREENING (Once After 26 Yrs) Completed 01/18/2025 MENINGOCOCCAL VACCINES (B) Aged Out N o longer eligible based on patient's age to complete this topic Medical Devices Not on file Procedures Procedure Name Priority Date/Time Associated Diagnosis Comments COMPREHENSIVE METABOLIC PANEL Routine 11/16/2024 4:35 PM EDT Essential hypertension HEPATITIS C ANTIBODY, QUALITATIVE Routine 11/16/2024 4:34 PM EDT Need for hepatitis C screening test from Last 3 Months or Most Recently Relevant to Health Maintenance Results * Comprehensive metabolic panel (11/16/2024 4:35 PM EDT) Blood us Francisca Mckeon MD, MPH LAB BLOOD ORDERABLES Final Result Performing Organization Address City/[facility]/ZIP Co de Phone Number [address] [address] * Hepatitis C antibody, qualitative (11/16/2024 4:34 PM EDT) Blood us Francisca Mckeon MD, MPH LAB BLOOD ORDERABLES Final Result Performing Organization Address City/[facility]/ZIP Co de Phone Number [address] [phone] from Last 3 Months or Most Recently Relevant to Health Maintenance [facility] Address: [address] [place] [address] [place] [facility] [place] [facility] [place] [facility] Care Teams Film Critic Relationship Specialty Start Date End Date Francisca Mckeon MD, MPH [address] [place] [phone] PCP - General Family Medicine 06/09/19 Francisca Mckeon MD, MPH [address] [place] [address] [email or web address] Insurance Assigned Provider 10/22/24 Additional Source Comments The information contained in this document represents components of the legal health record. It is not the complete legal health record.[facility]
--- OUTSIDE RECORDS SUMMARY | 2025-04-18 16:39 | XMS_ITS | Clinical Summary ---
Author Organization [facility] Address [address] [place] [address] Phone Care Team Providers Care Calender Wind Up Helper Name Role Phone Unavailable Primary Care Provider Unavailabl e Immunizations Immunization Administration Dates Next Due DTP 10/24/1997, 7,1996,04/21 DTaP 5 03/11/2001 HPV, Quadrivalent 08/01/2013,03/18/2013,12/17/19 13 Hep A, Adult 02/14/2015 Hep A, ped/adol 01/24/2014 Hep B, ped/adol 1996,1996,1996 Hib (PRP-T) 05/21/1997, 7,1996,04/21 IPV 03/11/2001 Influenza Split 08/26/2012,05/06/2011 Influenza, injectable, quadrivalent 08/03/2014 Influenza, injectable, quadr ivalent, preservative free 05/21/2015,08/08/2013 Influenza, injectable, trivalent 05/22/2009,0310/2008,08/13/2006 Influenza, injectable, triva lent, preservative free 06/02/2024 MMR 03/20/2000,05/18/1997 Meningococcal Conj (Menactra) MCV4P 03/05/2015,0 04/06/2008 OPV 1996,1996,1996 Tdap 04/06/2008 Varicella 04/06/2008,1997 Family History Relation Name Status Comments Father Alive Father: Alive a nd well Maternal Grandmother Materna l grandmother: Diabetes mellitus, Hypertension Mother Alive Mother: Alive a nd well Other Family history of Obesity, No family history of *Sudden /MD under 55, Family history of COPD, Family history of Hyperlipidemia, Family history of Hypertension, Family history of Diabetes mellitus, Family history of Asthma, Family history of *Dental caries, No family history of *Heart Disease, No family history of *CVA/Stroke, No family history of Stroke Paternal Grandmother Paterna l grandmother: Asthma Social History Tobacco Use Types Packs/Day Years Used Date Smoking Tobacco: Never Comments:Never smoker Sex and Gender Information Value Date Recorded Sex Assigned at Not on file Legal Sex Male 4:57 PM EDT Gender Identity Not on file Sexual Orientation Not on file Last Filed Vital Signs Vital Sign Reading Time Taken Comments Blood Pressure 144/83 01/28/2017 12:00 AM EDT Pulse 67 01/28/2017 12:00 AM EDT Temperature 37 C (98.6 F) 01/28/2017 12:00 AM EDT Respiratory Rate - - Oxygen Saturation 98% 01/28/2017 12:00 AM EDT Inhaled Oxygen Concentration - - Weight 71 kg (156 lb 9.6 oz) 01/28/2017 12:00 AM EDT Height 177.2 cm (5' 9.75 ) 01/28/2017 12:00 AM E DT Body Mass Index 22.63 01/28/2017 12:00 AM EDT Plan of Treatment Health Maintenance Due Date Last Done Comments COVID-19 Vaccine (3 season) 2024 02/09/2021, 01/19/2021 Influenza Vaccines (#1) 2025 06/02/20, 08/21/2023, 07/28/2022, Additional history exists DTaP,Tdap,and Td Vaccines (8 - Td or Tdap) 03/29/2028 03/29/2018, 04/06/2008, 03/11/2001, Additional history exists HIB Vaccines Completed 05/21/1997, 10/1996, 1996, Additional history exists MMR Vaccines Completed 03/20/2000, 05/18/1997 IPV Vaccines Completed 03/11/2001, 10/1996, 1996, Additional history exists Varicella Vaccines Completed 04/06/2008, 1997 HPV Vaccines Completed 08/01/2013, 09/2012, 12/16/2012 Hepatitis A Vaccines Completed 02/14/2015, 01/25/20 14 Meningococcal Vaccine Aged Out 03/05/2015, 008 No longer eligible based on patient's age to complete this topic Hepatitis B Vaccines Completed 11/01/2018, 05/03/2018, 03/31/2018, Additional history exists Men B Vaccine Aged Out No longer elig ible based on patient's age to complete this topic Pneumococcal Vaccine Aged Out No long er eligible based on patient's age to complete this topic Insurance [facility] NON PCC [facility] HMO
--- OUTSIDE RECORDS SUMMARY | 2025-04-18 16:39 | XMS_ITS | Encounter Summary ---
Author Organization [facility] Address [address] [place] [address] Phone Care Team Providers Care Phone Screener Name Role Phone Arminda Reilly MD Primary Care Provider [phone] Encounter Details Date Type Department Care Team (Late st Contact Info) Description 01/20/2017 Documentation [facility] [address] [place] [address] Family Medicine, Physician [address] [place], [place] [id number] Social History Tobacco Use Types Packs/Day Years [...] on filedocumented in this encounter Care Teams Phone Screener Relationship Specialty Start Date End Date Arminda Reilly MD [address] [place] [address] PCP - General 03/27/17 12/12/17 documented as of this encounter
== END 2025-04-18 16:28 | disposition home or self-care (01) ==
LOC: HO.HMCHD 15:46
PROVIDERS: PCP Physician Assistant; Visit Provider Physician Assistant
DX: I10 Essential (primary) hypertension (principal); R13.10 Dysphagia, unspecified; J45.909 Unspecified asthma, uncomplicated; Z72.51 High risk heterosexual behavior

== ENCOUNTER 2025-08-14 16:29 | Outpatient (AMB) | payer OTHER, SELFPAY ==
[2025-08-14 16:30] VITALS: BP 122/72; PULSE 50; TEMP 36.2; O2SAT 98; BMI 26.1
--- NOTE | 2025-08-14 16:30 | A.OFFPC_ITS ---
Vital Signs 08/14/25 16:30 Height 5 ft 9 in Weight 177 lb BMI 26.1 BP 122/72 Blood Pressure Location Lt brachial Position Sitting Pulse 50 Pulse Source Pulse Oximeter Temp 97.1 F Temp Source Temporal Artery Scan Pulse Oximetry (%) 98 Oxygen Delivery Method Room Air Intake Visit Reasons: Abd bloating Worm Raiser Required: No Accompanied by: Self / Same As Patient Allergies No Known Allergies (No Known Allergies*) Allergy (Verified 08/14/25 16:30) Medication List - Last Reconciled 08/14/25 by WILL Alcantar albuterol sulfate 90 mcg/actuation (Ventolin HFA) 2 puffs inhalation Q4-6H PRN beclomethasone dipropionate 40 mcg/actuation (Qvar RediHaler) 2 inhalations inhalation BID clotrimazole 1% 1 appl topical BID lisinopril 5 mg PO DAILY omeprazole 20 mg PO DAILY Tobacco use date assessed: 08/14/25 Dental Screening Dental Screen Date: 08/14/25 Did you have a dental visit in the last 12 months?: No Did you have a dental problem in the last 6 months where you did not have access to dental care?: No HPI HPI Comments History of Present Illness Details History of Present Illness The patient is a 30 year old male presenting with abdominal symptoms which he suspects may be Irritable Bowel Syndrome (IBS). His primary symptom is a feeling of incomplete evacuation after a bowel movement. He has noticed that his stools have become thinner and more yellow in color. He also experiences bloating for a good portion of the day, sometimes accompanied by cramping prior to a bowel movement. He occasionally sees mucus in his stool but denies any blood. The patient reports upper abdominal discomfort located superior to the umbilicus. His symptoms do not appear to be triggered by specific foods and can occur even after drinking water. He has a past medical history of acid reflux several years ago and is also dealing with a fungal skin issue. He recently started taking a probiotic supplement a few days prior to this visit. Medical History: - Acid reflux, history of - Fungal skin infection Patient was informed and verbally consented to the use of an ambient scribe for clinic note documentation during this visit. [facility] Medical History HTN (hypertension) Asthma Surgical History Hx of wisdom tooth extraction (~05/2020) Family History (Updated 08/14/25 @ 16:39 by Carol Woodard MA) Father HTN (hypertension) Alcohol abuse Mother HTN (hypertension) Other Substance abuse Social History Household Members: Family Both parents involved: Yes Housing: House Alcohol intake: current Alcohol intake frequency: does not drink Patient Tobacco Use Status: Never used Tobacco e-Cigarette/Vaping Use: Never Used service: No Current occupational status: employed Cognitive needs: No Hearing needs: No Vision needs: Yes (reading glasses) Questionnaire Thrive Questionnaire Date Thrive assessed: 04/18/25 JESSICA-7 AMB Questionnaire JESSICA-7 Date JESSICA - 7 assessed: 04/18/25 Source: Developed by Drs. Janak Pompa, Sloane Joseph, Ethan Carr and colleagues, with an educational jaison from [employer]. Review of Systems Narrative Review of Systems - Gastrointestinal: Reports a sensation of incomplete evacuation, thinner stools, yellow stools, abdominal bloating, and upper abdominal discomfort above the navel. Reports occasional abdominal cramping and mucus in stool. Denies hematochezia. - Dermatologic: Reports a fungal skin condition. Physical exam (Primary Care) Vital Signs: Last Vital Signs Temp 97.1 F 08/14/25 16:30 Pulse 50 08/14/25 16:30 BP 122/72 08/14/25 16:30 Pulse Ox 98 08/14/25 16:30 Oxygen Delivery Method Room Air 08/14/25 16:30 BMI result Body Mass Index 26.1 GENERAL Well developed, Well nourished, in no apparent distress HEENT Head-Normocephalic Neck- Supple, No lymphadenopathy, thyroid WNL RESPIRATORY Normal I:E, Clear to auscultation CARDIOVASCULAR Regular, rate and rhythm, No murmurs or rubs GASTROINTESTINAL Soft, nontender, normal bowel sounds, no masses NEUROLOGICAL Gait normal PSYCHIATRIC Oriented to person, place and time Mood and affect WNL Appearance WNL Speech WNL Thought processes WNL Tobacco/Smoking Status: Tobacco use Status Tobacco use date assessed 08/14/25 08/14/25 16:40 Patient Tobacco Use Status Never used Tobacco 08/14/25 16:40 e-Cigarette/Vaping Use Never Used 08/14/25 16:40 Thrive Assessment: Date of Thrive Assessment Date Thrive assessed 04/18/25 08/14/25 16:40 Narrative Physical Exam - Abdomen: Bowel sounds are gurgly in the upper quadrants. The abdomen is soft and non-tender to palpation throughout. No pain reported on deep inspiration. Coding Level of Care Code Established Pt Est Pt Level 4 (06431) Established Pt Add On Problem Visit Only Patient Type Established Diagnoses GERD without esophagitis K21.9 IBS (irritable bowel syndrome) K58.9 Time Spent (min) 30 Comment Time spent on Chart review, H&P, Patient education and orders. Assessment & Plan Assessment & Plan (1) GERD without esophagitis: Code(s): K21.9 - Gastro-esophageal reflux disease without esophagitis Plan: Will restart Omeprazole. Patient to follow up as needed if symptoms persist or worsen. (2) IBS (irritable bowel syndrome): Code(s): K58.9 - Irritable bowel syndrome, unspecified Plan: Discussed options with patient. Recommended Fiber powder. Increase water. Patient to follow up as needed if symptoms persist or worsen. Plan Plan Patient was informed and verbally consented to the use of an ambient scribe for clinic note documentation during this visit. 1. Irritable Bowel Syndrome The patient's symptoms of bloating, sensation of incomplete evacuation, and thinner stools are consistent with Irritable Bowel Syndrome (IBS), likely exacerbated by daily stress. The plan is to increase fiber intake to promote more consistent bowel movements and alleviate bloating. Recommended starting Benefiber powder at a dose of one teaspoon twice daily, with an emphasis on ensuring adequate water intake. The patient was advised that while his probiotic is not harmful, it may not significantly impact his IBS symptoms. The role of stress reduction was also discussed. 2. Gastroesophageal Reflux Given the patient's history of acid reflux, reports of upper abdominal discomfort, and gurgling sounds on exam, a recurrence of acid-related symptoms is suspected. A prescription for omeprazole to be taken once daily will be sent to the patient's preferred pharmacy. 3. Follow-Up Care The patient has a follow-up scheduled with [facility] in October but was advised to return sooner if his symptoms do not improve with the new regimen. Discussion Notes I discussed with the patient that his constellation of symptoms, including bloating, sensation of incomplete evacuation, and changes in stool form, are highly suggestive of Irritable Bowel Syndrome (IBS). I explained the pathophysiology of IBS as a dysregulation of the gut-brain axis, often exacerbated by stress, which leads to confusion in the digestive tract's motility. I also noted that his upper abdominal discomfort could be a recurrence of his past acid reflux issues. We discussed a plan to address these issues, starting with a prescription for omeprazole once daily for the suspected acid reflux. For the IBS symptoms, I recommended increasing fiber intake using a supplement like Benefiber, starting with one teaspoon twice a day, and stressed the importance of drinking adequate water to prevent constipation. We also discussed that while his current probiotic is not harmful, it may not provide significant relief for IBS. The importance of stress management was reinforced. The patient has a follow-up scheduled in October but was instructed to return sooner if his condition does not improve. Patient Instructions - Take omeprazole once a day for your stomach discomfort. I have sent a presc ription to the [facility] on . - I recommend you start taking a fiber powder to help with your bowel symptoms. A good option is Benefiber. - Start by mixing one teaspoon of fiber powder into a drink in the morning and one teaspoon at night. - It is very important to drink plenty of water throughout the day while using a fiber supplement. - You can finish the bottle of probiotics you bought, but you do not need to buy more if you don't notice a benefit. - Try to find ways to lower your stress, as it can make your stomach problems worse. - Please come back to the clinic sooner than your scheduled October appointment if your symptoms are not getting better. Medications: New omeprazole 20 mg PO DAILY 90 caps 0RF
--- OUTSIDE RECORDS SUMMARY | 2025-08-14 18:00 | XMS_ITS | Encounter Summary ---
Author Organization [facility] Address [address] [place] [address] Phone Care Team Providers Care Freight Forwarder Name Role Phone Francisca Mckeon MD, MPH Primary Care Provid er Francisca Mckeon MD, MPH Unavailable [phone] Reason for Visit * Reason Onset Date Comments Constipation 10/30/2022 Encounter Details Date Type Department Care Team (Late st Contact Info) Description 10/30/2022 Nurse Triage [facility] [address] [place] [address] Francisca Mckeon MD, MPH [address] [facility] [address] [place] [address] [email or web address] Constipation Social History Tobacco Use Types Packs/Day [...] high school, GED, job training, learning the Polish language, technical skills, or developing parenting skills)? [...] your last menstrual period? Na Protocols used: [id number] documented in this encounter Plan of Treatment Not on file documented as of this encounter Visit Diagnoses Not on filedocumented in this encounter Additional Health Concerns Assessment Noted Time PHQ-2 Depression Total Score: 0 07/24/20 21 12:16 PM EST documented as of this encounter Care Teams Freight Forwarder Relationship Specialty Start Date End Date Francisca Mckeon MD, MPH [address] [address] [email or web address] PCP - General Family Medicine 06/09/19 Francisca Mckeon MD, MPH [address] [address] [email or web address] Insurance Assigned Provider 10/22/24 05/27/25 documented as of this encounter Additional Source Comments The information contained in this document represents components of the legal health record. It is not the complete legal health record.[facility]
--- OUTSIDE RECORDS SUMMARY | 2025-08-14 18:00 | XMS_ITS | Encounter Summary ---
Author Organization [facility] Address [address] [place] [address] Phone Care Team Providers Care Vp Transportation Name Role Phone Arminda Reilly MD Primary Care Provider [phone] Encounter Details Date Type Department Care Team (Late st Contact Info) Description 06/18/2017 Conversion Encounter [facility] [place] [address] [place] [address] Social History Tobacco Use Types Packs/Day Years [...] on filedocumented in this encounter Care Teams Vp Transportation Relationship Specialty Start Date End Date Arminda Reilly MD [address] [place] [address] PCP - General 03/27/17 12/12/17 documented as of this encounter
--- OUTSIDE RECORDS SUMMARY | 2025-08-14 18:00 | XMS_ITS | Encounter Summary ---
Author Organization [facility] Address [address] [place] [address] Phone Care Team Providers Care Loan Reviewer Name Role Phone Francisca Mckeon MD, MPH Primary Care Provid er Francisca Mckeon MD, MPH Unavailable [phone] Encounter Details Date Type Department Care Team (Late st Contact Info) Description 05/02/2021 Procedure Pass [facility] Endoscopy Admitting Dept Virtual Department [address] [place] [address] Social History Tobacco Use Types Packs/Day Years [...] documented as of this encounter Care Teams Loan Reviewer Relationship Specialty Start Date End Date Francisca Mckeon MD, MPH [address] [facility] [address] [address] [email or web address] PCP - General Family Medicine 06/09/19 Francisca Mckeon MD, MPH [address] [place] [address] [email or web address] Insurance Assigned Provider 10/22/24 05/27/25 documented as of this encounter Additional Source Comments The information contained in this document represents components of the legal health record. It is not the complete legal health record.[facility]
--- OUTSIDE RECORDS SUMMARY | 2025-08-14 18:00 | XMS_ITS | Encounter Summary ---
Author Organization [facility] Address [address] [place] [address] [place] [address] Phone Care Team Providers Care Space Operations Officer Name Role Phone Francisca Mckeon MD, MPH Primary Care Provid er Francisca Mckeon MD, MPH Unavailable [phone] Encounter Details Date Type Department Care Team (Late st Contact Info) Description 09/19/2022 Procedure Pass [facility] Non-Invasic Cardiology [address] [place] [address] Social History Tobacco Use Types Packs/Day Years [...] high school, GED, job training, learning the Haitian language, technical skills, or developing parenting skills)? [...] documented as of this encounter Care Teams Space Operations Officer Relationship Specialty Start Date End Date Francisca Mckeon MD, MPH [address] [place] [id number] [email or web address] PCP - General Family Medicine 06/09/19 Francisca Mckeon MD, MPH [address] [place] [phone] Insurance Assigned Provider 10/22/24 05/27/25 documented as of this encounter Additional Source Comments The information contained in this document represents components of the legal health record. It is not the complete legal health record.[facility]
--- OUTSIDE RECORDS SUMMARY | 2025-08-14 18:00 | XMS_ITS | Encounter Summary ---
Author Organization [facility] Address [address] [place] [address] Phone Care Team Providers Care Mammography Technologist Name Role Phone Francisca Mckeon MD, MPH Primary Care Provid er Francisca Mckeon MD, MPH Unavailable [phone] Encounter Details Date Type Department Care Team (Late st Contact Info) Description 07/29/2022 Transcribe Orders [facility] Specimen Processing [address] [place] [address] Francisca Mckeon MD, MPH [address] [facility] [address] [place] [address] [email or web address] Social History Tobacco Use Types Packs/Day Years [...] high school, GED, job training, learning the Ukrainian language, technical skills, or developing parenting skills)? [...] documented as of this encounter Care Teams Mammography Technologist Relationship Specialty Start Date End Date Francisca Mckeon MD, MPH [address] [place] [phone] [email or web address] PCP - General Family Medicine 06/09/19 Francisca Mckeon MD, MPH [address] [place] [phone] Insurance Assigned Provider 10/22/24 05/27/25 documented as of this encounter Additional Source Comments The information contained in this document represents components of the legal health record. It is not the complete legal health record.[facility]
--- OUTSIDE RECORDS SUMMARY | 2025-08-14 18:00 | XMS_ITS | Encounter Summary ---
Author Organization [facility] Address [address] [place] [address] Phone Care Team Providers Care Dock Operator Name Role Phone Arminda Reilly MD Primary Care Provider [phone] Encounter Details Date Type Department Care Team (Late st Contact Info) Description 01/20/2017 [place]ation [facility] [place] [address] [place] [address] Family Medicine, Physician [address] [place], [place] [id number] Social History Tobacco Use Types Packs/Day Years [...] on filedocumented in this encounter Care Teams Dock Operator Relationship Specialty Start Date End Date Arminda Reilly MD [address] [place] [address] PCP - General 03/27/17 12/12/17 documented as of this encounter
--- OUTSIDE RECORDS SUMMARY | 2025-08-14 18:00 | XMS_ITS | Clinical Summary ---
Author Organization [facility] Address [address] [place] [address] Phone Care Team Providers Care Assembler [employer] Name Role Phone Unavailable Primary Care Provider [...] of Obesity, No family history of *Sudden /ND under 55, Family history of COPD, Family [...] Health Maintenance Due Date Last Done Comments Influenza Vaccines (#1) 2025 06/02/20 24, 08/21/2023, 07/28/2022, Additional history exists COVID-19 Vaccine ( season) 2025 02/09/2021, 01/19/2021 DTaP,Tdap,and Td Vaccines (8 - Td or Tdap) 03/29/2028 03/29/2018, 04/06/2008, 03/11/2001, Additional history exists HIB Vaccines Completed 05/21/1997, 10/1996, 1996, Additional history exists MMR Vaccines Completed 03/20/2000, 05/18/1997 IPV Vaccines Completed 03/11/2001, 10/1996, 1996, Additional history exists Varicella Vaccines Completed 04/06/2008, 1997 HPV Vaccines Completed 08/01/2013, 09/2012, 12/16/2012 Hepatitis A Vaccines Completed 02/14/2015, 01/25/20 14 Meningococcal Vaccine Completed 03/05/2015, 008 Hepatitis B Vaccines Completed 11/01/2018, 05/03/2018, 03/31/2018, Additional history exists Men B Vaccine Aged Out No longer elig ible based on patient's age to complete this topic Pneumococcal Vaccine Aged Out No long er eligible based on patient's age to complete this topic Insurance [facility] HMO
--- OUTSIDE RECORDS SUMMARY | 2025-08-14 18:00 | XMS_ITS | Clinical Summary ---
Author Organization [facility] Address [address] [place] [phone] Phone Care Team Providers Care Export Sales Assistant Name Role Phone Francisca Mckeon MD, MPH Primary Care Provid er Allergies No known active allergies Medications senna [...] GI. Still having dysphagia and globus sensation. [facility] [place] referral made. Assessment & Plan (01/02/2020 [...] right side, noted on prior exam at [facility] Immunizations Immunization Administration Dates Next Due COVID-19 [...] high school, GED, job training, learning the [place] language, technical skills, or developing parenting skills)? [...] is your housing situation today? I have christisosa coffman 11/15/2023 How many times have you move [...] 08/21/2023, 07/28/2022, Additional history exists COVID-19 VACCINE ( season) 2025 02/09/2021, 01/19/2021, 01/19/2021 BLOOD PRESSURE [...] complete this topic HEPATITIS C SCREENING Completed 11/16/2024, 025 SMOKING STATUS SCREENING (Once After 26 Yrs) Completed 01/18/2025 MENINGOCOCCAL VACCINES (B) Aged Out N o longer eligible based on patient's age to complete this topic Medical Devices Not on file Procedures Procedure Name Priority Date/Time Associated Diagnosis Comments COMPREHENSIVE METABOLIC PANEL (CMP) Routine 11/16/2024 4:35 PM EDT Essential hypertension HEPATITIS C ANTIBODY, QUALITATIVE Routine 11/16/2024 4:34 PM EDT Need for hepatitis C screening test from Last 3 Months or Most Recently Relevant to Health Maintenance Results * Comprehensive metabolic panel (11/16/2024 4:35 PM EDT) Blood us Francisca Mckeon MD, MPH LAB BLOOD BKR ORDERA BLES Final Result [address] [id number] * Hepatitis C antibody, qualitative (11/16/2024 4:34 PM EDT) Blood Francisca Mckeon MD, MPH LAB BLOOD BKR ORDERA BLES Final Result [facility] [address], [place] [id number] from Last 3 Months or Most Recently Relevant to Health Maintenance [facility] [place] [facility] [place] [address] [facility] EPO [facility] Care Teams Export Sales Assistant Relationship Specialty Start Date End Date Francisca Mckeon MD, MPH [address] [place] [id number] [email or web address] PCP - General Family Medicine 06/09/19 Additional Source Comments The information contained in this document represents components of the legal health record. It is not the complete legal health record.[email or web address]
== END 2025-08-14 16:59 | disposition home or self-care (01) ==
LOC: HO.HMCHD 16:29
PROVIDERS: PCP Physician Assistant; Visit Provider Physician Assistant Medical
DX: K21.9 Gastro-esophageal reflux disease without esophagitis (principal); K58.9 Irritable bowel syndrome, unspecified